=== PATIENT | male | born 1950 | race Two or more races ===

== ENCOUNTER 2021-06-20 08:23 | Outpatient (CLI) | payer OTHER | END 2021-06-20 08:24 | disposition home or self-care (01) | LOC: TOM 08:23 | PROVIDERS: ATTEND Internal Medicine Gastroenterology | DX: C19 Malignant neoplasm of rectosigmoid junction (principal) | CPT/HCPCS: 74178; Q9965 ==

== ENCOUNTER 2021-07-26 08:59 | Inpatient (IN) | payer OTHER ==
[~2021-07-26] VITALS: Ht 177.8 cm; Wt 86.2 kg
[2021-07-26] MEDS ORDERED: TOPROL XL25 M1 PO (11:43)
[2021-07-26] MEDS ORDERED: ELIQUIS5 MG PO (11:43)
[2021-07-26] MEDS ORDERED: METFORMIN HCL850 MG (11:44)
[2021-07-26] MEDS ORDERED: CRESTOR5 MG PO (11:44)
[2021-07-31] MEDS ORDERED: MAXIMUM D3325 MCG (11:03)
[2021-07-31] MEDS ORDERED: METFORMIN HCL850 M1 (11:04)
[2021-07-31] MEDS ORDERED: REFRESH TEARS15 ML (11:04)
[2021-07-31] MEDS ORDERED: OMEPRAZOLE40 MG (11:04)
== END 2021-08-02 11:16 | disposition home or self-care (01) | DRG 330 ==
LOC: O/R 07-31 05:47 → SURH 07-31 10:45
PROVIDERS: ADMIT Colon & Rectal Surgery; ATTEND Colon & Rectal Surgery
PROC: 0DTN4ZZ Resection of Sigmoid Colon, Percutaneous Endoscopic Approach (ICD-10-PCS; 2021-07-31)
PROC: 07BB4ZZ Excision of Mesenteric Lymphatic, Percutaneous Endoscopic Approach (ICD-10-PCS; 2021-07-31)
PROC: 0DBP4ZZ Excision of Rectum, Percutaneous Endoscopic Approach (ICD-10-PCS; principal; 2021-07-31 14:45)
DX: C20 Malignant neoplasm of rectum (principal); K92.1 Melena; D36.0 Benign neoplasm of lymph nodes; I10 Essential (primary) hypertension; E11.9 Type 2 diabetes mellitus without complications; I48.91 Unspecified atrial fibrillation

== ENCOUNTER → 2021-09-04 | Day surgery (SDC) | payer OTHER ==
[~2021-09-04] MED LIST: CRESTOR5 MG PO; ELIQUIS5 MG PO; MAXIMUM D3325 MCG; METFORMIN HCL850 M1; METFORMIN HCL850 MG; OMEPRAZOLE40 MG; REFRESH TEARS15 ML; TOPROL XL25 M1 PO
== END | disposition home or self-care (01) ==
LOC: ADM 09-03 10:00 → CIR.AMB 05:40
PROVIDERS: ATTEND Colon & Rectal Surgery
DX: C19 Malignant neoplasm of rectosigmoid junction (principal); I48.91 Unspecified atrial fibrillation; I10 Essential (primary) hypertension; Z87.891 Personal history of nicotine dependence; E11.9 Type 2 diabetes mellitus without complications; Z79.01 Long term (current) use of anticoagulants; Z79.84 Long term (current) use of oral hypoglycemic drugs; Z20.822 Contact with and (suspected) exposure to COVID-19

== ENCOUNTER 2022-05-22 14:06 | Outpatient (CLI) | payer OTHER | END 2022-05-22 14:13 | disposition home or self-care (01) | LOC: LAB 14:06 | PROVIDERS: ATTEND Specialist | DX: L02.91 Cutaneous abscess, unspecified (principal) ==

== ENCOUNTER 2023-05-07 05:36 | Day surgery (SDC) | payer OTHER ==
[2023-04-18 11:41] LABS: URINE APPEARANCE Clear; URINE BILIRRUBIN Negative (NEGATIVE); URINE BLOOD Negative; URINE COLOR Yellow; URINE GLUCOSE Negative (NEGATIVE); URINE LEUKOCYTE Negative; URINE NITRATE Negative; URINE PROTEIN Negative (NEGATIVE); URINE UROBILINOGEN 0.2 E.U./dl
[2023-04-18 11:43] LABS: HEMATOCRIT 41.7 % (39.0-48.0); HEMOGLOBIN 14.4 g/dL (13-16.00); MEAN CELL VOLUME 88.8 fL (80.0-100.00); MEAN CORPUSCULAR HEMOGLOBIN 30.6 pg (27.00-32.0); MEAN CORPUSCULAR HGB CONC 34.4 g/dl (32.0-36.0); PLATELET COUNT 197 K/uL (150-450); RED CELL DISTRIBUTION WIDTH 17.2 % (11.5-14.5)
[2023-04-18 11:52] LABS: URINE BACTERIA 0 uL (0.0-1933); URINE EPITHELIAL CELLS 0.3 uL (0.0-38.8); URINE WBC 0.4 uL (0.0-23.2)
[2023-04-18 12:05] LABS: INR 1.06; PARTIAL THROMBOPLASTIN TIME 32.2 SECONDS (22.0-34.0); PROTHROMBIN TIME 11.1 SECONDS (9.0-11.5)
[2023-04-18 12:08] LABS: ALBUMIN 4.4 gm/dL (3.4-5.0); BILIRUBIN TOTAL 3.54 mg/dL (0.3-1.2); CALCIUM 9.9 mg/dL (8.5-10.1); CREATININE SERUM 1.01 mg/dL (0.70-1.30); GFR 72.61; POTASSIUM 5.26 mEq/L (3.5-5.1); TOTAL PROTEIN 7.4 gm/dL (6.4-8.2)
[~2023-05-07] VITALS: Ht 177.8 cm; Wt 77.1 kg
[~2023-05-07 05:36] MED LIST changes: +B COMPLEX1 EACH PO
== END 2023-05-07 10:55 | disposition home or self-care (01) ==
LOC: CIR.AMB 05:36
PROVIDERS: ATTEND Colon & Rectal Surgery
DX: C18.9 Malignant neoplasm of colon, unspecified (principal)